=== PATIENT | female | born 1980 | race Caucasian/White ===

== ENCOUNTER 2018-03-19 10:37 | Inpatient (IN) | payer OTHER ==
[2018-03-19 11:19] VITALS: BMI 26.4
--- NOTE | 2018-03-19 12:13 | HP ---
CIWA Score - Admission Criteria OASAS Guidelines: Admission for Medically Managed Detox: Requires at least one of the followin. CIWA greater than 12 2. Seizures within the past 24 hours 3. Delirium tremens within the past 24 hours 4. Hallucinations within the past 24 hours 5. Acute intervention needed for co occurring medical disorder 6. Acute intervention needed for co occurring psychiatric disorder 7. Severe withdrawal that cannot be handled at a lower level of care (continued vomiting, continued diarrhea, abnormal vital signs) requiring intravenous medication and/or fluids 8. Admission ROS S - HPI Chief Complaint: i need help to come in rehab from heroin Allergies/Adverse Reactions: Allergies Allergy/AdvReac Type Severity Reaction Status Date / Time levofloxacin [From Levaquin] Allergy Verified 03/19/18 11:59 haloperidol [From Haldol] AdvReac Verified 03/19/18 12:17 History of Present Illness: This 37 years old female with heroin dependence seeking rehab,last treatment in 2013,history of hepatitis c history of pulmonary embolism right in 01/03 on xeralto congenital club feet,s/p surgery left,old fx of left ankle,wearing brace anxiety,depression,ocd scoliosis nicotine dependence longest period sobriety 3 years - Ebola screening Have you traveled outside of the country in the last 21 days: No Have you had contact with anyone from an Ebola affected area: No Have you been sick,other than usual withdrawal symptoms: No Do you have a fever: No - Review of Systems Constitutional: No Symptoms Reported EENT: reports: No Symptoms Reported Respiratory: reports: No Symptoms reported, Other (history of pulmonary embolism right) Cardiac: reports: No Symptoms Reported (irregularity of heart beat) GI: reports: No Symptoms Reported : reports: No Symptoms Reported Musculoskeletal: reports: No Symptoms Reported, Other (congenital club foot left ,s/p surgery fx left ankle wearing brace left foot) Integumentary: reports: No Symptoms Reported Neuro: reports: No Symptoms reported Endocrine: reports: No Symptoms Reported Hematology: reports: No Symptoms Reported Psychiatric: reports: No Sypmtoms Reported, Judgement Intact, Mood/Affect Appropiate, Orientated x3, Anxious, Depressed (ocd scoliois of back) Patient History - Patient Medical History Hx Asthma: No Hx Chronic Obstructive Pulmonary Disease (COPD): No Hx Cardiac Disorders: No Hx Hypertension: No Hx Seizures: No Hx Diabetes: No Hx Gastrointestinal Disorders: No Hx Genitourinary Disorders: No Hx Sexually Transmitted Disorders: No Hx Renal Disease (ESRD): No Hx Depression: Yes Hx Suicide Attempt: No Hx Schizophrenia: No - Patient Surgical History Past Surgical History: Yes Hx Orthopedic Surgery: Yes (L ankle clubfoot sx at 13 months) Other Surgical History: L foot fx sx in 2014 - PPD History Previous Implant?: Yes Documented Results: Negative w/o proof Implanted On Prior R Admission?: No - Reproductive History Last Menstrual Period: 03/17/18 Patient : No - Smoking Cessation Smoking history: Current every day smoker Have you smoked in the past 12 months: Yes Aproximately how many cigarettes per day: 20 Hx Chewing Tobacco Use: No Initiated information on smoking cessation: Yes 'Breaking Loose' booklet given: 03/19/18 - Substances Abused Heroin Route: Injection Frequency: 1-3 times last 30 days Amount used: 1 bag Age of first use: 19 Date of Last Use: 03/13/17 Family Disease History - Family Disease History Family History: Denies Admission Physical Exam S - Vital Signs Vital Signs: Vital Signs - 24 hr 03/19/18 11:17 Temperature 98.7 F Pulse Rate 64 Respiratory 18 Rate Blood Pressure 108/69 - Physical General Appearance: Yes: Within Normal Limits HEENTM: Yes: Normal ENT Inspection, SHARON, Pharynx Normal Respiratory: Yes: Within Normal Limits, Lungs Clear, Normal Breath Sounds Neck: Yes: Within Normal Limits, Supple, Trachea in good position Breast: Yes: Within Normal Limits Cardiology: Yes: Within Normal Limits, Regular Rhythm, Regular Rate, S1, S2 Abdominal: Yes: Within Normal Limits, Normal Bowel Sounds, Non Tender, Flat, Soft Genitourinary: Yes: Within Normal Limits Back: Yes: Within Normal Limits, Other (scoliosis) Musculoskeletal: Yes: Within Normal Limits Extremities: Yes: Within Normal Limits, Other (scar left) Neurological: Yes: loan operations manager II-XII NML intact, Fully Oriented, Alert, Motor Strength 5/5 Integumentary: Yes: Within Normal Limits, Dry Lymphatic: Yes: Within Normal Limits - Diagnostic (1) Heroin dependence Current Visit: Yes Status: Acute (2) History of pulmonary embolism Current Visit: Yes Status: Acute (3) Hepatitis C Current Visit: Yes Status: Acute (4) Congenital valgus club-foot Current Visit: Yes Status: Acute (5) Fracture of left ankle Current Visit: Yes Status: Acute (6) Scoliosis Current Visit: Yes Status: Acute (7) Anxiety and depression Current Visit: Yes Status: Acute (8) Nicotine dependence Current Visit: Yes Status: Acute Cleared for Admission [facility] - Detox or Rehab Claeared for Rehab Admission: Yes [facility] Breath Alcohol Content Breath Alcohol Content: 0 Urine Pregancy Test - Result Urine Test Results: Negative- NO Line Present Urine Drug Screen - Results Drug Screen Negative: Yes Inpatient Rehab Admission - Initial Determination Are CD services needed?: Yes Free of communicable disease: Yes Not in need of hospitalization: Yes - Rehab Admission Criteria Previous failed treatment: Yes Poor recovery environment: Yes Comorbidities: Yes Lacks judgement: No Patient is meeting Inpatient Rehab admission criteria:: Yes
[2018-03-19] MEDS ORDERED: guaiFENesin/D-METHORPHAN HB 10 ML UNIT-DOSE CUPS PO PRN (12:25)
[2018-03-19] MEDS ORDERED: MENTHOL/PHENOL 1 EACH UD MM PRN (12:25)
[2018-03-19] MEDS ORDERED: MAGNESIUM CITRATE 300 ML BOTTLE PO PRN (12:25)
[2018-03-19] MEDS ORDERED: P-EPHED 60MG/TRIPROLIDI 2.5MG TABLET PO PRN (12:25)
[2018-03-19] MEDS ORDERED: MAG HYDROX/AL HYDROX/SIMETH 30 ML UNIT-DOSE CUP PO PRN (12:25)
[2018-03-19] MEDS ORDERED: MAGNESIUM HYDROX 2400MG/30ML ORAL SUSPENSION 30 ML CUP PO PRN (12:25)
[2018-03-19] MEDS ORDERED: LOPERAMIDE HCL 2 MG CAPSULE PO PRN (12:25)
--- NOTE | 2018-03-19 13:19 | CONSULT ---
[facility] Psychiatric Consult - Data Date of interview: 03/19/18 Admission source: [facility] Identifying data: This is the first admission to [facility] inpatient rehab for this 37 years old female single childless resides with parents, supported by Trellise. Substance Abuse History: Reports using since 19 yo IV ,about 6 bags daily.Longest abstinence about 4 years. Medical History: H/O pulmonary embolism,Hep C, Psychiatric History: Patient reports first contact with psychiatrist since 15 years old.She was dx with Generalized anxiety disorder,OCD(trichotillomania) .Patient was on Luvox,then on Zoloft.She is currently on Wellbutrin since Feb,Seroquel 50 mg po hs prn.She reports one psychiatric hospitalization in Feb 2018 to Rashad Ortiz at [facility] to address depression,anxiety,OCD.She was placed on Wellbutrin 150 mg po daily and Seroquel 100 mg po prn for insomnia ,mood instability. Physical/Sexual Abuse/Trauma History: patient denies Mental Status Exam - Mental Status Exam Alert and Oriented to: Time, Place, Person Cognitive Function: Grossly Intact Patient Appearance: Unkempt Mood: Depressed, Sad, Anxious Affect: Labile Patient Behavior: Cooperative Speech Pattern: Clear Voice Loudness: Normal Thought Process: Goal Oriented Thought Disorder: Not Present Hallucinations: Denies Suicidal Ideation: Denies Homicidal Ideation: Denies Insight/Judgement: Fair Sleep: Fair Appetite: Good Muscle strength/Tone: Normal Gait/Station: Normal Psychiatric Findings - Problem List ([place] 1, 2,3) (1) Congenital valgus club-foot Current Visit: Yes Status: Chronic (2) Fracture of left ankle Current Visit: Yes Status: Chronic (3) Hepatitis C Current Visit: Yes Status: Acute (4) Heroin dependence Current Visit: Yes Status: Acute (5) History of pulmonary embolism Current Visit: Yes Status: Chronic (6) Nicotine dependence Current Visit: Yes Status: Acute (7) Scoliosis Current Visit: Yes Status: Chronic (8) Substance induced mood disorder Current Visit: Yes Status: Chronic (9) OCD (obsessive compulsive disorder) Current Visit: Yes Status: Chronic - Initial Treatment Plan Initial Treatment Plan: Continue Wellbutrin XL 150 mg po daily and Seroquel 100 mg po hs prn for insomnia. Will monitor program.
[2018-03-19 14:18] LABS: HEMOGLOBIN 12.8 GM/dL (10.7-15.3); MCH 33.4 pg (25.7-33.7); MCHC 34.5 g/dl (32.0-36.0); MEAN CELL VOLUME 96.7 fl (80-96); MEAN PLT VOLUME 7.4 fl (7.5-11.1); PLATELET COUNT 241 K/MM3 (134-434); RBC 3.83 M/mm3 (3.60-5.2); RDW 14.4 % (11.6-15.6); WHITE BLOOD COUNT 5.8 K/mm3 (4.0-10.0)
[2018-03-19] MEDS ORDERED: TUBERCULIN PPD 5 TU/0.1ML VIAL ID ONE (14:25)
[2018-03-19 14:29] LABS: ALBUMIN 3.9 g/dl (3.4-5.0); ALK PHOS 65 U/L (45-117); ANION GAP 7 MMOL/L (8-16); BILIRUBIN,TOTAL 0.3 mg/dL (0.2-1); BLOOD UREA NITROGEN 21 mg/dL (7-18); CALCIUM 8.7 mg/dL (8.5-10.1); CHLORIDE 103 mmol/L (98-107); CO2 27 mmol/L (21-32); GLUCOSE,RANDOM 81 mg/dL (74-106); POTASSIUM 4.4 mmol/L (3.5-5.1); SGOT/AST 28 U/L (15-37); SGPT/ALT 42 U/L (13-61); SODIUM 137 mmol/L (136-145); TOT PROT 7.6 g/dl (6.4-8.2)
[2018-03-19] MEDS ORDERED: PT OWN MED DRAWER 7, Y5N ONE (14:56)
[2018-03-19] MEDS: THIAMINE HCL 100 MG TABLET (FP) PO SCH (21:50)
[2018-03-19] MEDS: NICOTINE POLACRILEX 2 MG GUM BUC PRN (21:54)
[2018-03-19] MEDS: hydrOXYzine PAMOATE 50 MG CAPSULE (FP) PO PRN (21:54)
[2018-03-19] MEDS ORDERED: MELATONIN 5 MG TABLETS PO PRN (22:00)
[2018-03-19] MEDS ORDERED: GABAPENTIN 100 MG CAPSULE (FP) PO SCH (23:15)
[2018-03-20] MEDS: GABAPENTIN 100 MG CAPSULE (FP) PO SCH ×3 (06:49→21:40)
[2018-03-20] MEDS: LORATADINE 10 MG TABLET PO PRN (06:49)
[2018-03-20] MEDS: RIVAROXABAN 20 MG TABLET PO SCH (07:41)
[2018-03-20] MEDS: PRENATAL VITAMINS W/ FOLIC ACID TABLET (FP) PO SCH (09:51)
[2018-03-20] MEDS: NICOTINE POLACRILEX 2 MG GUM BUC PRN ×2 (09:52→14:12)
[2018-03-20 13:18] LABS: URINE APPEARANCE CLEAR; URINE BILIRUBIN NEGATIVE (<2.0 mg/dL); URINE COLOR LTYELLOW; URINE GLUCOSE (UA) NEGATIVE (NEGATIVE); URINE KETONE NEGATIVE (NEGATIVE); URINE LEUK ESTERASE NEGATIVE (NEGATIVE); URINE NITRITE NEGATIVE (NEGATIVE); URINE PROTEIN NEGATIVE (NEGATIVE); URINE UROBILINOGEN NEGATIVE mg/dL (0.2-1.0)
[2018-03-20] MEDS: THIAMINE HCL 100 MG TABLET (FP) PO SCH (21:39)
[2018-03-20] MEDS: hydrOXYzine PAMOATE 50 MG CAPSULE (FP) PO PRN (21:40)
[2018-03-20] MEDS: QUEtiapine FUMARATE 100 MG TABLET (FP) PO PRN (21:41)
[2018-03-21] MEDS: LORATADINE 10 MG TABLET PO PRN (06:49)
[2018-03-21] MEDS: RIVAROXABAN 20 MG TABLET PO SCH (06:49)
[2018-03-21] MEDS: GABAPENTIN 100 MG CAPSULE (FP) PO SCH ×3 (06:49→21:18)
[2018-03-21] MEDS: NICOTINE POLACRILEX 2 MG GUM BUC PRN ×2 (09:38→21:20)
[2018-03-21] MEDS: PRENATAL VITAMINS W/ FOLIC ACID TABLET (FP) PO SCH (09:38)
--- NOTE | 2018-03-21 15:46 | EKG ---
Test Reason : Blood Pressure : / mmHG Vent. Rate : 047 BPM Atrial Rate : 047 BPM P-R Int : 146 ms QRS Dur : 086 ms QT Int : 472 ms P-R-T Axes : 023 044 048 degrees QTc Int : 417 ms SINUS BRADYCARDIA WITH SINUS ARRHYTHMIA OTHERWISE NORMAL ECG NO PREVIOUS ECGS AVAILABLE Confirmed by SHIMON MCKENZIE MD ([id number]) on 03/21/2018 3:46:36 PM Referred By: Confirmed By:SHIMON MCKENZIE MD
[2018-03-21] MEDS: THIAMINE HCL 100 MG TABLET (FP) PO SCH (21:17)
[2018-03-21] MEDS: QUEtiapine FUMARATE 100 MG TABLET (FP) PO PRN (21:18)
[2018-03-21] MEDS: hydrOXYzine PAMOATE 50 MG CAPSULE (FP) PO PRN (21:18)
[2018-03-22] MEDS ORDERED: PT OWN MED DRAWER 7, Y5N ONE (05:47)
[2018-03-22] MEDS: GABAPENTIN 100 MG CAPSULE (FP) PO SCH ×3 (06:31→21:23)
[2018-03-22] MEDS: RIVAROXABAN 20 MG TABLET PO SCH (06:31)
[2018-03-22] MEDS: NICOTINE POLACRILEX 2 MG GUM BUC PRN ×4 (06:31→21:24)
[2018-03-22] MEDS: PRENATAL VITAMINS W/ FOLIC ACID TABLET (FP) PO SCH (09:47)
[2018-03-22] MEDS: LORATADINE 10 MG TABLET PO PRN (10:22)
--- NOTE | 2018-03-22 15:52 | PN ---
"[facility] Progress Note Note: PT REQUESTING TO GET BACK ON SUBOXONE. PT REPORTS SHE WAS ON SUBOXONE 8MG/2MG SL TID AND LAST RECEIVED DOSE ON 05/06/[address] CARR IN [place], [place]. PT WAS REFERRED TO HER COUNSELOR TODAY TO ARRANGE FOR AFTERCARE AND CONTINUED SUBOXONE TREATMENT AFTER REHAB TREATMENT. PT WILL BE SEEN TOMORROW FOR ASSESSMENT AND POSSIBLE RESTART ON SUBOXONE. BELOW IS HER HX SEEN ON [facility]. The Drug Utilization Report below displays all of the controlled substance prescriptions, if any, that your patient has filled in the last twelve months. The information displayed on this report is compiled from pharmacy submissions to the Department, and accurately reflects the information as submitted by the pharmacies. This report was requested by: Ariana Booker | Reference #: [id number] You have not added a BRENT number. Keeping your BRENT number(s) up to date on the My BRENT Numbers page will enable the separation of your prescriptions from others ' in the search results. Others' Prescriptions Patient Name: Vanna Clay Date: 1980 Address: [address] [place] [address] Sex: Female Rx Written Rx Dispensed Drug Quantity Days Supply Prescriber Name 05/01/2017 05/01/2017 suboxone 8 mg-2 mg sl film 21 7 Tito Myers MD 04/24/2017 04/24/2017 suboxone 8 mg-2 mg sl film 21 7 Tito Myers MD 04/17/2017 04/17/2017 suboxone 8 mg-2 mg sl film 21 7 Tito Myers MD 04/10/2017 04/10/2017 suboxone 8 mg-2 mg sl film 21 7 Tito Myers MD 04/03/2017 04/03/2017 suboxone 8 mg-2 mg sl film 21 7 Tito Myers MD 03/27/2017 03/27/2017 suboxone 8 mg-2 mg sl film 21 7 Tito Myers MD * - Drugs marked with an asterisk are compound drugs. If the compound drug is made up of more than one controlled substance, then each controlled substance will be a separate row in the table. Vital Signs - 24 hr 03/22/18 03/22/18 03/22/18 00:30 03:30 07:16 Temperature 97.7 F Pulse Rate 81 Respiratory 16 16 18 Rate Blood Pressure 119/76 Laboratory Tests 03/19/18 03/19/18 03/19/18 12:40 12:40 12:40 WBC 5.8 RBC 3.83 Hgb 12.8 Hct 37.0 MCV 96.7 H MCH 33.4 MCHC 34.5 RDW 14.4 Plt Count 241 MPV 7.4 L Sodium 137 Potassium 4.4 Chloride 103 Carbon Dioxide 27 Anion Gap 7 L BUN 21 H Creatinine 1.0 Creat Clearance w eGFR > 60 Random Glucose 81 Calcium 8.7 Total Bilirubin 0.3 AST 28 ALT 42 Alkaline Phosphatase 65 Total Protein 7.6 Albumin 3.9 Urine Color Urine Appearance Urine pH Ur Specific [place] Urine Protein Urine Glucose (UA) Urine Ketones Urine Blood Urine Nitrite Urine Bilirubin Urine Urobilinogen Ur Leukocyte Esterase RPR Titer Nonreactive 03/20/18 09:20 WBC RBC Hgb Hct MCV MCH MCHC RDW Plt Count MPV Sodium Potassium Chloride Carbon Dioxide Anion Gap BUN Creatinine Creat Clearance w eGFR Random Glucose Calcium Total Bilirubin AST ALT Alkaline Phosphatase Total Protein Albumin Urine Color Ltyellow Urine Appearance Clear Urine pH 6.0 Ur Specific Prospect 1.013 Urine Protein Negative Urine Glucose (UA) Negative Urine Ketones Negative Urine Blood Negative Urine Nitrite Negative Urine Bilirubin Negative Urine Urobilinogen Negative Ur Leukocyte Esterase Negative RPR Titer RANJEET=0 ON ADMISSION DRUG SCREEN NEGATIVE ON ADMISSION PLAN:WILL START SUBOXONE 4 MG/0.5 MG SL BID STARTING ON 03/23/18"
[2018-03-22] MEDS: THIAMINE HCL 100 MG TABLET (FP) PO SCH (21:23)
[2018-03-22] MEDS: QUEtiapine FUMARATE 100 MG TABLET (FP) PO PRN (21:23)
[2018-03-22] MEDS: hydrOXYzine PAMOATE 50 MG CAPSULE (FP) PO PRN (21:23)
[2018-03-23] MEDS ORDERED: PT OWN MED DRAWER 7, Y5N ONE (03:14)
[2018-03-23] MEDS: RIVAROXABAN 20 MG TABLET PO SCH (06:27)
[2018-03-23] MEDS: GABAPENTIN 100 MG CAPSULE (FP) PO SCH ×3 (06:27→21:14)
[2018-03-23] MEDS: NICOTINE POLACRILEX 2 MG GUM BUC PRN ×3 (06:28→21:14)
[2018-03-23] MEDS: PRENATAL VITAMINS W/ FOLIC ACID TABLET (FP) PO SCH (09:47)
[2018-03-23] MEDS: LORATADINE 10 MG TABLET PO PRN (09:47)
--- NOTE | 2018-03-23 10:34 | HP ---
CIWA Score - Admission Criteria OASAS Guidelines: Admission for Medically Managed Detox: Requires at least one of the followin. CIWA greater than 12 2. Seizures within the past 24 hours 3. Delirium tremens within the past 24 hours 4. Hallucinations within the past 24 hours 5. Acute intervention needed for co occurring medical disorder 6. Acute intervention needed for co occurring psychiatric disorder 7. Severe withdrawal that cannot be handled at a lower level of care (continued vomiting, continued diarrhea, abnormal vital signs) requiring intravenous medication and/or fluids 8. Admission ROS [facility] Chief Complaint: REQUESTING SUBOXONE TREATMENT AND SX OF DRUG CRAVINGS. Allergies/Adverse Reactions: Allergies Allergy/AdvReac Type Severity Reaction Status Date / Time levofloxacin [From Levaquin] Allergy Verified 03/19/18 11:59 haloperidol [From Haldol] AdvReac Verified 03/19/18 12:17 History of Present Illness: PT IS A 37 Y/O FEMALE WITH A HX OF HEROIN AND COCAINE DEPENDENCE REQUESTING SUBOXONE TREATMENT. PT REPORTS SHE IS ON PAROLE BUT REFERRED TO REHAB RESTORATIVE MANAGEMENT. PT REPORTS SHE WAS IN TREATMENT WITH DR. MYERS FROM FEBRUARY -April, BEFORE INCARCERATED. RELEASED AUGUST 2017 BUT HAS NOT BEEN BACK TO THE DOCTOR. PT REPORTS SHE THEN WAS IN [place] IN A DAY CLINIC WHERE SHE WAS ON SUBUTEX 20 MG DAILY FOR ABOUT 3 MONTHS LATER PART OF 2017. RETURNED TO [place] IN AND HAS NOT RETURNED TO SUBOXONE TREATMENT BECAUSE OF INACTIVE [place] INSURANCE. SHE ALSO STATED SHE HAS BEEN ON/OFF SUBOXONE TREATMENT WITH OTHER PROVIDERS OTHER THAN DR ROX TOMLINSON. PT REPORTS SHE HAS NO JOB BUT TAKES CARE OF HER GRANDMOTHER. REPORTS WHEN SHE WAS ON SUBOXONE THE TREATMENT HELPED HER TO BE SOMEHOW IN [place] OF HER LIFE AND WAS IN AN OUT PATIENT PROGRAM IN [place]. BELOW IS HER EXHIBITS MANAGER SUBOXONE HX. PT REPORTS HX BLOOD CLOTS AND ON XARELTO BUT STATES SHE AMATO BEEN ON IT WELL WHILE ON SUBOXONE TREATMENT. REPORTS HX DEPRESSION/TREATMENT. The Drug Utilization Report below displays all of the controlled substance prescriptions, if any, that your patient has filled in the last twelve months. The information displayed on this report is compiled from pharmacy submissions to the Department, and accurately reflects the information as submitted by the pharmacies. This report was requested by: Ariana Booker | Reference #: [id number] You have not added a BRENT number. Keeping your BRENT number(s) up to date on the My BRENT Numbers page will enable the separation of your prescriptions from others ' in the search results. Others' Prescriptions Patient Name: Vanna Isidro Date: 1980 Address: [address] [place] [address] Sex: Female Rx Written Rx Dispensed Drug Quantity Days Supply Prescriber Name 05/01/2017 05/01/2017 suboxone 8 mg-2 mg sl film 21 7 Tito Myers MD 04/24/2017 04/24/2017 suboxone 8 mg-2 mg sl film 21 7 Tito Myers MD 04/17/2017 04/17/2017 suboxone 8 mg-2 mg sl film 21 7 Tito Myers MD 04/10/2017 04/10/2017 suboxone 8 mg-2 mg sl film 21 7 Tito Myers MD 04/03/2017 04/03/2017 suboxone 8 mg-2 mg sl film 21 7 Tito Myers MD 03/27/2017 03/27/2017 suboxone 8 mg-2 mg sl film 21 7 Tito Myers MD * - Drugs marked with an asterisk are compound drugs. If the compound drug is made up of more than one controlled substance, then each controlled substance will be a separate row in the table.The Drug Utilization Report below displays the controlled substance prescriptions, if any, that were dispensed in the indicated state(s). The information displayed on this report is compiled from requests submitted to other states' PMPs, and accurately reflects the information as returned by them. Blank galvan indicate data not provided by other state. This report was requested by: Ariana Bookre | Reference #: [id number] Prescriptions Dispensed in [place] Others' Prescriptions Patient Name: VANNA ISIDRO Date: 1980 Address: [address] [place] [address] Sex: Female Rx Written Rx Dispensed Drug Strength Quantity Days Supply Prescriber Name 01/10/2014 01/10/2014 DEXTROAMP-AMPHET ER 20 MG CAP 15.0000 15 Blu Mejia 01/04/2014 01/04/2014 VYVANSE 30 MG CAPSULE 7.0000 7 Blu Mejia 05/18/2014 05/20/2014 OXYCODONE-ACETAMINOPHEN 5-325 15.0000 4 Cece Aden * - Drugs marked with an asterisk are compound drugs. If the compound drug is made up of more than one controlled substance, then each controlled substance will be a separate row in the table. Exam Limitations: No Limitations - Ebola screening Have you traveled outside of the country in the last 21 days: No Have you had contact with anyone from an Ebola affected area: No Have you been sick,other than usual withdrawal symptoms: No Do you have a fever: No - Review of Systems Constitutional: No Symptoms Reported Respiratory: reports: No Symptoms reported Cardiac: reports: No Symptoms Reported GI: reports: No Symptoms Reported Musculoskeletal: reports: Back Pain (HX SCOLIOSIS), Joint Pain, Muscle Pain, Neck Pain ("NEUROPATHY ON MY NECK"), Other (HX CLUB FOOT--BRACE ON LEFT FOOT. SURGERY AT 13 MONTHS AND ALSO PINS/PLATES IN MAY 2014.) Neuro: reports: Headache (MENSTRUAL HEADACHES) Hematology: reports: Blood Clots (HX-OX XARELTO) Psychiatric: reports: Orientated x3 Other Systems: Reviewed and Negative Patient History - Patient Medical History Hx Anemia: No Hx Asthma: No Hx Chronic Obstructive Pulmonary Disease (COPD): No Hx Cardiac Disorders: No Hx Hypertension: No Hx Hypercholesterolemia: No HX Cerebrovascular Accident: No Hx Seizures: No Hx Diabetes: No Hx Gastrointestinal Disorders: No Hx Genitourinary Disorders: No Hx Sexually Transmitted Disorders: No Hx Renal Disease (ESRD): No Hx Hepatitis C: Yes (NO TREATMENT YET) Hx Depression: Yes Hx Suicide Attempt: No (DENIES S/I) Hx Schizophrenia: No - Patient Surgical History Past Surgical History: Yes Hx Orthopedic Surgery: Yes (L ankle clubfoot sx at 13 months) Other Surgical History: L foot fx sx in 2014 - PPD History Previous Implant?: Yes Documented Results: Negative w/o proof Implanted On Prior R Admission?: No Date: 03/21/18 PPD to be Administered?: No - Reproductive History Patient is a Female of Child Bearing Age (11 -55 yrs old): Yes Last Menstrual Period: 03/17/18 Patient : No - Smoking Cessation Smoking history: Current every day smoker Have you smoked in the past 12 months: Yes Aproximately how many cigarettes per day: 20 Hx Chewing Tobacco Use: No Initiated information on smoking cessation: Yes 'Breaking Loose' booklet given: 03/23/18 - Substance & Tx. History Hx Alcohol Use: No Hx Substance Use: Yes Substance Use Type: Cocaine, Heroin Hx Substance Use Treatment: Yes - Substances Abused Heroin Route: Injection Frequency: 1-3 times last 30 days Amount used: 1 bag Age of first use: 19 Date of Last Use: 03/13/17 Family Disease History - Family Disease History Family Disease History: Other: Mother (HTN) Admission Physical Exam [facility] - Vital Signs Vital Signs: Vital Signs - 24 hr 03/23/18 03/23/18 03:30 07:13 Temperature 97.7 F Pulse Rate 75 Respiratory 16 16 Rate Blood Pressure 112/71 - Physical General Appearance: Yes: No Apparent Distress HEENTM: Yes: EOMI, SHARON, Pharynx Normal Respiratory: Yes: Chest Non-Tender, Lungs Clear, Normal Breath Sounds, No Respiratory Distress Neck: Yes: Supple, Trachea in good position Cardiology: Yes: Regular Rate, S1, S2 Abdominal: Yes: Non Tender, Soft Extremities: Yes: Other (PT HAS LEFT ANKLE BRACE DUE TO CONGENITAL CLUB FOOT SX. ) Neurological: Yes: sales contract administrator II-XII NML intact, Fully Oriented, Alert Integumentary: Yes: Dry, Warm Lymphatic: Yes: Within Normal Limits - Addiitonal Findings: PT WILL START SUBOXONE 4MG/ 1MG SL BID - Diagnostic (1) Encounter for monitoring Suboxone maintenance therapy Current Visit: Yes Status: Acute [facility] Breath Alcohol Content Breath Alcohol Content: 0 Urine Pregancy Test - Result Urine Test Results: Negative- NO Line Present Urine Drug Screen - Results Drug Screen Negative: Yes
[2018-03-23] MEDS ORDERED: BUPRENORPHINE/NALOXONE 2 MG/0.5 MG FILM PACKET SL ONE (11:25)
[2018-03-23] MEDS: BUPRENORPHINE/NALOXONE 2 MG/0.5 MG FILM PACKET SL SCH (17:47)
[2018-03-23] MEDS: THIAMINE HCL 100 MG TABLET (FP) PO SCH (21:14)
[2018-03-23] MEDS: QUEtiapine FUMARATE 100 MG TABLET (FP) PO PRN (21:14)
[2018-03-23] MEDS: hydrOXYzine PAMOATE 50 MG CAPSULE (FP) PO PRN (21:15)
[2018-03-24] MEDS: RIVAROXABAN 20 MG TABLET PO SCH (06:02)
[2018-03-24] MEDS: GABAPENTIN 100 MG CAPSULE (FP) PO SCH ×3 (06:02→21:29)
[2018-03-24] MEDS: BUPRENORPHINE/NALOXONE 2 MG/0.5 MG FILM PACKET SL SCH ×2 (06:02→17:46)
[2018-03-24] MEDS: PRENATAL VITAMINS W/ FOLIC ACID TABLET (FP) PO SCH (09:50)
[2018-03-24] MEDS: LORATADINE 10 MG TABLET PO PRN (09:51)
[2018-03-24] MEDS: NICOTINE POLACRILEX 2 MG GUM BUC PRN ×2 (09:51→13:40)
[2018-03-24] MEDS ORDERED: COLLOIDAL OATMEAL 1 BAR EACH TP PRN (10:33)
--- NOTE | 2018-03-24 10:38 | PN ---
[facility] Progress Note Note: PT C/O ITCHY SKIN AND WANTS SOAP CHANGED SINCE FEW DAYS AGO. REPORTS DRY ITCHY ANKLES. Vital Signs - 24 hr 03/24/18 03/24/18 03/24/18 00:30 03:30 08:31 Temperature 98.2 F Pulse Rate 76 Respiratory 16 16 16 Rate Blood Pressure 115/72 PLAN:AVEENO SOAP FOR DAILY HYGIENE HYDROCORTISONE CREAM 1/% BID APPLY TO AFFECTED ANKLE AREAS X 5 DAYS
[2018-03-24] MEDS: HYDROCORTISONE 1% TOPICAL CREAM 30 GM TUBE TP SCH ×2 (13:40→21:32)
[2018-03-24] MEDS: hydrOXYzine PAMOATE 50 MG CAPSULE (FP) PO PRN (21:29)
[2018-03-24] MEDS: QUEtiapine FUMARATE 100 MG TABLET (FP) PO PRN (21:29)
[2018-03-24] MEDS: THIAMINE HCL 100 MG TABLET (FP) PO SCH (21:29)
[2018-03-24] MEDS: NICOTINE POLACRILEX 4 MG GUM BUC PRN (21:30)
[2018-03-24] MEDS ORDERED: PT OWN MED DRAWER 7, Y5N ONE (21:32)
[2018-03-25] MEDS ORDERED: PT OWN MED DRAWER 7, Y5N ONE ×2 (02:59→21:47)
[2018-03-25] MEDS: RIVAROXABAN 20 MG TABLET PO SCH (06:12)
[2018-03-25] MEDS: GABAPENTIN 100 MG CAPSULE (FP) PO SCH (06:12)
[2018-03-25] MEDS: BUPRENORPHINE/NALOXONE 2 MG/0.5 MG FILM PACKET SL SCH ×2 (06:12→17:49)
[2018-03-25] MEDS: NICOTINE POLACRILEX 4 MG GUM BUC PRN ×3 (09:55→21:12)
[2018-03-25] MEDS: PRENATAL VITAMINS W/ FOLIC ACID TABLET (FP) PO SCH (09:55)
[2018-03-25] MEDS: LORATADINE 10 MG TABLET PO PRN (09:55)
[2018-03-25] MEDS: HYDROCORTISONE 1% TOPICAL CREAM 30 GM TUBE TP SCH ×2 (09:56→21:12)
--- NOTE | 2018-03-25 13:42 | PN ---
Psychiatric Progress Note Vital Signs: Vital Signs Period Temp Pulse Resp BP Sys/Pickard Pulse Ox Last 24 Hr 97.9 F 77 16-18 96/60 Date of Session: 03/25/18 Chief Complaint:: "I want my medication increased" HPI: Patient addressing Opioid dependence comorborbid with Nicotine Dependence, OCD and Substance-Induced Mood Disorder ROS: Hep C, PE, Scoliosis, Congenital Valgus club-foot Current Medications: Active Medications Generic Name Dose Route Start Last Admin Trade Name Freq PRN Reason Stop Dose Admin Acetaminophen 650 mg 03/19/18 12:25 Tylenol - PO Q4H PRN FEVER Al Hydroxide/Mg Hydroxide 30 ml 03/19/18 12:25 Mylanta Oral Suspension - PO Q6H PRN DYSPEPSIA Buprenorphine/Naloxone 2 each 03/23/18 18:00 03/25/18 06:12 Suboxone 2mg/0.5mg Sl Film - SL 03/30/18 17:59 2 each BID@0600,1800 BRYNN Administration Bupropion HCl 150 mg 03/19/18 14:00 03/25/18 09:55 Wellbutrin Xl - PO 150 mg DAILY BRYNN Administration Eucalyptus/Menthol/Phenol/Sorbitol 1 each 03/19/18 12:25 Cepastat Lozenge - MM Q4H PRN SORE THROAT Gabapentin 100 mg 03/20/18 06:00 03/25/18 06:12 Neurontin - PO 100 mg TID BRYNN Administration Guaifenesin 10 ml 03/19/18 12:25 Robitussin Dm - PO Q6H PRN COUGH Hydrocortisone 1 applic 03/24/18 10:45 03/25/18 09:56 Hytone 1% Cream - TP 03/29/18 10:44 1 applic BID BRYNN Administration Hydroxyzine Pamoate 50 mg 03/19/18 12:25 03/24/18 21:29 Vistaril - PO 50 mg Q4H PRN Administration AGITATION Loperamide HCl 4 mg 03/19/18 12:25 Imodium - PO Q6H PRN DIARRHEA Loratadine 10 mg 03/19/18 23:50 03/25/18 09:55 Claritin - PO 10 mg DAILY PRN Administration Nasal Allergies Magnesium Citrate 300 ml 03/19/18 12:25 Citroma - PO Q48H PRN CONSTIPATION Magnesium Hydroxide 30 ml 03/19/18 12:25 Milk Of Magnesia - PO DAILY PRN CONSTIPATION Melatonin 5 mg 03/19/18 22:00 Melatonin PO HS PRN INSOMNIA Nicotine Polacrilex 4 mg 03/24/18 14:14 03/25/18 09:55 Nicorette Gum - BUC 4 mg Q2H PRN Administration NICOTINE REPLACEMENT RX Multivit/Folic Acid/Iron 1 tab 03/20/18 10:00 03/25/18 09:55 Vitamins (Sjr) - PO 1 tab DAILY BRYNN Administration Pseudoephedrine/Triprolidine 1 combo 03/19/18 12:25 Actifed - PO TID PRN NASAL CONGESTION Quetiapine Fumarate 100 mg 03/19/18 13:52 03/24/18 21:29 Seroquel - PO 100 mg HS PRN Administration INSOMNIA Rivaroxaban 20 mg 03/20/18 07:00 03/25/18 06:12 Xarelto - PO 20 mg ACBK BRYNN Administration Thiamine HCl 100 mg 03/19/18 22:00 03/24/18 21:29 Vitamin B1 - PO 100 mg HS BRYNN Administration Current Side Effect: No Lab tests ordered: Yes Lab tests reviewed: Yes Provider note:: Patient reports that she has been feeling irritable and and has experiencing racing thoughts. Told underwriter that besides OCD, she was recently discharged from [facility] with the diagnosis of Bipolar Disorder on Wellbutrin Xl 150 mg po daily, Seroquel 100 mg po HS and Gabapentin 100 mg po TID. She is currently on these medicatons. Discussed with patient about increasing Gabapentin dose to 300 mg po TID and she agreed with that plan. Total face to face time:: 25 Mental Status Exam - Mental Status Exam Alert and Oriented to: Time, Place, Person Cognitive Function: Fair Patient Appearance: Well Groomed Mood: Anxious Affect: Appropriate Patient Behavior: Cooperative Speech Pattern: Clear Voice Loudness: Normal Thought Process: Intact Thought Disorder: Not Present Hallucinations: Denies Suicidal Ideation: Denies Homicidal Ideation: Denies Insight/Judgement: Fair Sleep: Poorly Appetite: Good Muscle strength/Tone: Normal Gait/Station: Normal Psychiatric Treatment Plan - Problem List (1) Bipolar II disorder Current Visit: Yes (2) OCD (obsessive compulsive disorder) Current Visit: Yes (3) Substance induced mood disorder Current Visit: Yes (4) Opioid dependence Current Visit: Yes (5) Nicotine dependence Current Visit: Yes (6) Hepatitis C Current Visit: Yes (7) History of pulmonary embolism Current Visit: Yes (8) Scoliosis Current Visit: Yes Initial treatment plan: 1) Continue Welbutrin XL and Seroquel as currently ordered. 2) Discontinue Gabapentin as currently ordered. 3) Start Gabapentin 300 mg po TID. 4) Continue inpatient rehabilitation
[2018-03-25] MEDS: GABAPENTIN 300 MG CAPSULE (FP) PO SCH ×2 (15:19→21:10)
[2018-03-25] MEDS: ACETAMINOPHEN 325 MG TABLET (FP) PO PRN (15:21)
[2018-03-25] MEDS: hydrOXYzine PAMOATE 50 MG CAPSULE (FP) PO PRN (21:10)
[2018-03-25] MEDS: THIAMINE HCL 100 MG TABLET (FP) PO SCH (21:10)
[2018-03-25] MEDS: QUEtiapine FUMARATE 100 MG TABLET (FP) PO PRN (21:11)
[2018-03-26] MEDS: GABAPENTIN 300 MG CAPSULE (FP) PO SCH ×3 (06:10→21:17)
[2018-03-26] MEDS: RIVAROXABAN 20 MG TABLET PO SCH (06:10)
[2018-03-26] MEDS: BUPRENORPHINE/NALOXONE 2 MG/0.5 MG FILM PACKET SL SCH ×2 (06:11→17:34)
[2018-03-26] MEDS: NICOTINE POLACRILEX 4 MG GUM BUC PRN ×3 (07:35→17:36)
[2018-03-26] MEDS: ACETAMINOPHEN 325 MG TABLET (FP) PO PRN (09:36)
[2018-03-26] MEDS: LORATADINE 10 MG TABLET PO PRN (09:36)
[2018-03-26] MEDS: PRENATAL VITAMINS W/ FOLIC ACID TABLET (FP) PO SCH (09:36)
[2018-03-26] MEDS: HYDROCORTISONE 1% TOPICAL CREAM 30 GM TUBE TP SCH ×2 (09:38→21:18)
[2018-03-26 10:48] LABS: URINE APPEARANCE CLEAR; URINE BILIRUBIN NEGATIVE (<2.0 mg/dL); URINE COLOR STRAW; URINE GLUCOSE (UA) NEGATIVE (NEGATIVE); URINE KETONE NEGATIVE (NEGATIVE); URINE LEUK ESTERASE NEGATIVE (NEGATIVE); URINE NITRITE NEGATIVE (NEGATIVE); URINE PROTEIN NEGATIVE (NEGATIVE); URINE UROBILINOGEN NEGATIVE mg/dL (0.2-1.0)
--- NOTE | 2018-03-26 12:11 | PN ---
S Progress Note Note: PATIENT SEEN FOR C/O CONSTIPATION. PATIENT STATES SHE HAD BM AFTER TAKING MOM BUT WOULD LIKE STOOL SOFTENER. PATIENT DENIES ABD PAIN, N/V/D AND FEVER. Vital Signs Temperature 98.2 F 03/26/18 06:50 Pulse Rate 74 03/26/18 06:50 Respiratory Rate 18 03/26/18 06:50 Blood Pressure 97/62 03/26/18 06:50 O2 Sat by Pulse Oximetry (%) PE: ALERT AND ORIENTED X 3 SKIN WARM AND DRY GI SOFT, ND, NT EXT FULL ROM,AMB AD FELICIANO A/P: CONSTIPATION WILL ADD COLACE 100MG BID ENCOURAGE ORAL FLUIDS CONTINUE TO MONITOR
[2018-03-26] MEDS: hydrOXYzine PAMOATE 50 MG CAPSULE (FP) PO PRN (21:17)
[2018-03-26] MEDS: QUEtiapine FUMARATE 100 MG TABLET (FP) PO PRN (21:17)
[2018-03-26] MEDS: THIAMINE HCL 100 MG TABLET (FP) PO SCH (21:17)
[2018-03-26] MEDS: DOCUSATE SODIUM 100 MG CAPSULE (FP) PO SCH (21:20)
[2018-03-27] MEDS: GABAPENTIN 300 MG CAPSULE (FP) PO SCH ×3 (06:16→21:33)
[2018-03-27] MEDS: RIVAROXABAN 20 MG TABLET PO SCH (06:16)
[2018-03-27] MEDS: BUPRENORPHINE/NALOXONE 2 MG/0.5 MG FILM PACKET SL SCH ×2 (06:16→17:07)
[2018-03-27] MEDS: DOCUSATE SODIUM 100 MG CAPSULE (FP) PO SCH ×2 (09:44→21:33)
[2018-03-27] MEDS: PRENATAL VITAMINS W/ FOLIC ACID TABLET (FP) PO SCH (09:45)
[2018-03-27] MEDS: HYDROCORTISONE 1% TOPICAL CREAM 30 GM TUBE TP SCH ×2 (09:45→21:34)
[2018-03-27] MEDS: LORATADINE 10 MG TABLET PO PRN (09:46)
[2018-03-27] MEDS: ACETAMINOPHEN 325 MG TABLET (FP) PO PRN (09:47)
[2018-03-27] MEDS: NICOTINE POLACRILEX 4 MG GUM BUC PRN ×4 (09:47→21:36)
[2018-03-27] MEDS: QUEtiapine FUMARATE 100 MG TABLET (FP) PO PRN (21:33)
[2018-03-27] MEDS: THIAMINE HCL 100 MG TABLET (FP) PO SCH (21:33)
[2018-03-27] MEDS: hydrOXYzine PAMOATE 50 MG CAPSULE (FP) PO PRN (21:46)
[2018-03-28] MEDS: BUPRENORPHINE/NALOXONE 2 MG/0.5 MG FILM PACKET SL SCH ×2 (06:17→18:46)
[2018-03-28] MEDS: GABAPENTIN 300 MG CAPSULE (FP) PO SCH ×3 (06:17→21:17)
[2018-03-28] MEDS: RIVAROXABAN 20 MG TABLET PO SCH (06:17)
[2018-03-28] MEDS: HYDROCORTISONE 1% TOPICAL CREAM 30 GM TUBE TP SCH ×2 (09:33→21:17)
[2018-03-28] MEDS: DOCUSATE SODIUM 100 MG CAPSULE (FP) PO SCH ×2 (09:33→21:17)
[2018-03-28] MEDS: LORATADINE 10 MG TABLET PO PRN (09:34)
[2018-03-28] MEDS: NICOTINE POLACRILEX 4 MG GUM BUC PRN ×3 (09:34→18:47)
[2018-03-28] MEDS: PRENATAL VITAMINS W/ FOLIC ACID TABLET (FP) PO SCH (09:35)
[2018-03-28] MEDS ORDERED: PT OWN MED DRAWER 7, Y5N ONE (19:07)
[2018-03-28] MEDS: QUEtiapine FUMARATE 100 MG TABLET (FP) PO PRN (21:17)
[2018-03-28] MEDS: THIAMINE HCL 100 MG TABLET (FP) PO SCH (21:17)
[2018-03-28] MEDS: hydrOXYzine PAMOATE 50 MG CAPSULE (FP) PO PRN (21:17)
[2018-03-29] MEDS: GABAPENTIN 300 MG CAPSULE (FP) PO SCH ×3 (06:22→21:20)
[2018-03-29] MEDS: RIVAROXABAN 20 MG TABLET PO SCH (06:22)
[2018-03-29] MEDS: BUPRENORPHINE/NALOXONE 2 MG/0.5 MG FILM PACKET SL SCH ×2 (06:23→17:02)
[2018-03-29] MEDS: ACETAMINOPHEN 325 MG TABLET (FP) PO PRN (09:07)
[2018-03-29] MEDS: HYDROCORTISONE 1% TOPICAL CREAM 30 GM TUBE TP SCH (09:35)
[2018-03-29] MEDS: DOCUSATE SODIUM 100 MG CAPSULE (FP) PO SCH ×2 (10:03→21:20)
[2018-03-29] MEDS: PRENATAL VITAMINS W/ FOLIC ACID TABLET (FP) PO SCH (10:03)
[2018-03-29] MEDS: LORATADINE 10 MG TABLET PO PRN (10:04)
[2018-03-29] MEDS: NICOTINE POLACRILEX 4 MG GUM BUC PRN ×3 (10:05→21:21)
--- NOTE | 2018-03-29 10:33 | PN ---
[facility] Progress Note Note: PATIENT PRESENTS WITH C/O LBP AND MUSCLE ACHES. PATIENTS STATES SHE HAS CHRONIC SCIATICA AND HERNIATED DISCS. Vital Signs Temperature 98.1 F 03/29/18 06:54 Pulse Rate 73 03/29/18 06:54 Respiratory Rate 18 03/29/18 06:54 Blood Pressure 100/66 03/29/18 06:54 O2 Sat by Pulse Oximetry (%) Laboratory Tests 03/19/18 03/19/18 03/19/18 12:40 12:40 12:40 WBC 5.8 RBC 3.83 Hgb 12.8 Hct 37.0 MCV 96.7 H MCH 33.4 MCHC 34.5 RDW 14.4 Plt Count 241 MPV 7.4 L Sodium 137 Potassium 4.4 Chloride 103 Carbon Dioxide 27 Anion Gap 7 L BUN 21 H Creatinine 1.0 Creat Clearance w eGFR > 60 Random Glucose 81 Calcium 8.7 Total Bilirubin 0.3 AST 28 ALT 42 Alkaline Phosphatase 65 Total Protein 7.6 Albumin 3.9 Urine Color Urine Appearance Urine pH Ur Specific [place] Urine Protein Urine Glucose (UA) Urine Ketones Urine Blood Urine Nitrite Urine Bilirubin Urine Urobilinogen Ur Leukocyte Esterase RPR Titer Nonreactive 03/20/18 03/26/18 09:20 07:00 WBC RBC Hgb Hct MCV MCH MCHC RDW Plt Count MPV Sodium Potassium Chloride Carbon Dioxide Anion Gap BUN Creatinine Creat Clearance w eGFR Random Glucose Calcium Total Bilirubin AST ALT Alkaline Phosphatase Total Protein Albumin Urine Color Ltyellow Straw Urine Appearance Clear Clear Urine pH 6.0 6.0 Ur Specific [place] 1.013 1.004 L Urine Protein Negative Negative Urine Glucose (UA) Negative Negative Urine Ketones Negative Negative Urine Blood Negative Negative Urine Nitrite Negative Negative Urine Bilirubin Negative Negative Urine Urobilinogen Negative Negative Ur Leukocyte Esterase Negative Negative RPR Titer PE: ALERT AND ORIENTED X 3 SKIN WARM AND DRY EXT FULL ROM, AMB AD FELICIANO A/P: CHRONIC LBP ADD FLEXERIL 10MG TID CONTINUE TO MONITOR CLINICALLY
[2018-03-29] MEDS: CYCLOBENZAPRINE HCL 10 MG TABLET (FP) PO SCH ×2 (13:42→21:20)
[2018-03-29] MEDS: THIAMINE HCL 100 MG TABLET (FP) PO SCH (21:20)
[2018-03-29] MEDS: hydrOXYzine PAMOATE 50 MG CAPSULE (FP) PO PRN (21:20)
[2018-03-29] MEDS: QUEtiapine FUMARATE 100 MG TABLET (FP) PO PRN (21:20)
[2018-03-30] MEDS: GABAPENTIN 300 MG CAPSULE (FP) PO SCH ×3 (06:27→21:41)
[2018-03-30] MEDS: BUPRENORPHINE/NALOXONE 2 MG/0.5 MG FILM PACKET SL SCH (06:27)
[2018-03-30] MEDS: RIVAROXABAN 20 MG TABLET PO SCH (06:27)
[2018-03-30] MEDS: CYCLOBENZAPRINE HCL 10 MG TABLET (FP) PO SCH ×3 (06:27→21:41)
[2018-03-30] MEDS: DOCUSATE SODIUM 100 MG CAPSULE (FP) PO SCH ×2 (09:50→21:41)
[2018-03-30] MEDS: PRENATAL VITAMINS W/ FOLIC ACID TABLET (FP) PO SCH (09:51)
[2018-03-30] MEDS: LORATADINE 10 MG TABLET PO PRN (09:52)
[2018-03-30] MEDS: NICOTINE POLACRILEX 4 MG GUM BUC PRN ×4 (09:53→21:42)
--- NOTE | 2018-03-30 13:22 | PN ---
[facility] Progress Note Note: pt requesting increase of suboxone stating still craving for drugs. Vital Signs 03/30/18 07:11 Temperature 97.8 F Pulse Rate 76 Respiratory 18 Rate Blood Pressure 100/65 Laboratory Tests 03/19/18 03/19/18 03/19/18 12:40 12:40 12:40 WBC 5.8 RBC 3.83 Hgb 12.8 Hct 37.0 MCV 96.7 H MCH 33.4 MCHC 34.5 RDW 14.4 Plt Count 241 MPV 7.4 L Sodium 137 Potassium 4.4 Chloride 103 Carbon Dioxide 27 Anion Gap 7 L BUN 21 H Creatinine 1.0 Creat Clearance w eGFR > 60 Random Glucose 81 Calcium 8.7 Total Bilirubin 0.3 AST 28 ALT 42 Alkaline Phosphatase 65 Total Protein 7.6 Albumin 3.9 Urine Color Urine Appearance Urine pH Ur Specific [place] Urine Protein Urine Glucose (UA) Urine Ketones Urine Blood Urine Nitrite Urine Bilirubin Urine Urobilinogen Ur Leukocyte Esterase RPR Titer Nonreactive 03/20/18 03/26/18 09:20 07:00 WBC RBC Hgb Hct MCV MCH MCHC RDW Plt Count MPV Sodium Potassium Chloride Carbon Dioxide Anion Gap BUN Creatinine Creat Clearance w eGFR Random Glucose Calcium Total Bilirubin AST ALT Alkaline Phosphatase Total Protein Albumin Urine Color Ltyellow Straw Urine Appearance Clear Clear Urine pH 6.0 6.0 Ur Specific [place] 1.013 1.004 L Urine Protein Negative Negative Urine Glucose (UA) Negative Negative Urine Ketones Negative Negative Urine Blood Negative Negative Urine Nitrite Negative Negative Urine Bilirubin Negative Negative Urine Urobilinogen Negative Negative Ur Leukocyte Esterase Negative Negative RPR Titer nad plan:increase suboxone 8 mg/2mg sl bid as directed
[2018-03-30] MEDS: BUPRENORPHINE/NALOXONE 8 MG/2 MG FILM PACKET SL SCH (17:37)
[2018-03-30] MEDS: THIAMINE HCL 100 MG TABLET (FP) PO SCH (21:41)
[2018-03-30] MEDS: hydrOXYzine PAMOATE 50 MG CAPSULE (FP) PO PRN (21:41)
[2018-03-30] MEDS: QUEtiapine FUMARATE 100 MG TABLET (FP) PO PRN (21:41)
[2018-03-31] MEDS: BUPRENORPHINE/NALOXONE 8 MG/2 MG FILM PACKET SL SCH ×2 (06:20→17:53)
[2018-03-31] MEDS: GABAPENTIN 300 MG CAPSULE (FP) PO SCH (06:21)
[2018-03-31] MEDS: CYCLOBENZAPRINE HCL 10 MG TABLET (FP) PO SCH ×3 (06:21→21:52)
[2018-03-31] MEDS: RIVAROXABAN 20 MG TABLET PO SCH (06:21)
[2018-03-31] MEDS: NICOTINE POLACRILEX 4 MG GUM BUC PRN ×3 (06:23→14:06)
[2018-03-31] MEDS: PRENATAL VITAMINS W/ FOLIC ACID TABLET (FP) PO SCH (10:11)
[2018-03-31] MEDS: DOCUSATE SODIUM 100 MG CAPSULE (FP) PO SCH ×2 (10:11→21:52)
[2018-03-31] MEDS: LORATADINE 10 MG TABLET PO PRN (10:12)
--- NOTE | 2018-03-31 13:11 | PN ---
Psychiatric Progress Note Vital Signs: Vital Signs Period Temp Pulse Resp BP Sys/Pickard Pulse Ox Last 24 Hr 98.0 F 74 18-18 102/64 Date of Session: 03/31/18 Chief Complaint:: Saravanan still anxious,mood is unstable also,depressed. HPI: Patient addressed Opioid dependence comorbid with OCD, Bipolar disorder. ROS: Significant for Scoliosis,Neuropathy. Current Medications: Active Medications Generic Name Dose Route Start Last Admin Trade Name Freq PRN Reason Stop Dose Admin Acetaminophen 650 mg 03/19/18 12:25 03/29/18 09:07 Tylenol - PO 650 mg Q4H PRN Administration FEVER Al Hydroxide/Mg Hydroxide 30 ml 03/19/18 12:25 Mylanta Oral Suspension - PO Q6H PRN DYSPEPSIA Buprenorphine/Naloxone 1 each 03/30/18 18:00 03/31/18 06:20 Suboxone 8mg/2mg Sl Film - SL 04/06/18 17:59 1 each BID@0600,1800 BRYNN Administration Bupropion HCl 150 mg 03/19/18 14:00 03/31/18 10:11 Wellbutrin Xl - PO 150 mg DAILY BRYNN Administration Cyclobenzaprine HCl 10 mg 03/29/18 14:00 03/31/18 06:21 Flexeril - PO 10 mg TID BRYNN Administration Docusate Sodium 100 mg 03/26/18 22:00 03/31/18 10:11 Colace - PO 100 mg BID BRYNN Administration Eucalyptus/Menthol/Phenol/Sorbitol 1 each 03/19/18 12:25 03/27/18 02:10 Cepastat Lozenge - MM 1 each Q4H PRN Administration SORE THROAT Gabapentin 300 mg 03/25/18 14:00 03/31/18 06:21 Neurontin - PO 300 mg TID BRYNN Administration Guaifenesin 10 ml 03/19/18 12:25 Robitussin Dm - PO Q6H PRN COUGH Hydroxyzine Pamoate 50 mg 03/19/18 12:25 03/30/18 21:41 Vistaril - PO 50 mg Q4H PRN Administration AGITATION Loperamide HCl 4 mg 03/19/18 12:25 Imodium - PO Q6H PRN DIARRHEA Loratadine 10 mg 03/19/18 23:50 03/31/18 10:12 Claritin - PO 10 mg DAILY PRN Administration Nasal Allergies Magnesium Citrate 300 ml 03/19/18 12:25 03/27/18 09:48 Citroma - PO 300 ml Q48H PRN Administration CONSTIPATION Magnesium Hydroxide 30 ml 03/19/18 12:25 03/26/18 09:49 Milk Of Magnesia - PO 30 ml DAILY PRN Administration CONSTIPATION Melatonin 5 mg 03/19/18 22:00 Melatonin PO HS PRN INSOMNIA Nicotine Polacrilex 4 mg 03/24/18 14:14 03/31/18 10:13 Nicorette Gum - BUC 4 mg Q2H PRN Administration NICOTINE REPLACEMENT RX Multivit/Folic Acid/Iron 1 tab 03/20/18 10:00 03/31/18 10:11 Vitamins (Sjr) - PO 1 tab DAILY BRYNN Administration Pseudoephedrine/Triprolidine 1 combo 03/19/18 12:25 Actifed - PO TID PRN NASAL CONGESTION Quetiapine Fumarate 100 mg 03/19/18 13:52 03/30/18 21:41 Seroquel - PO 100 mg HS PRN Administration INSOMNIA Rivaroxaban 20 mg 03/20/18 07:00 03/31/18 06:21 Xarelto - PO 20 mg ACBK BRYNN Administration Thiamine HCl 100 mg 03/19/18 22:00 03/30/18 21:41 Vitamin B1 - PO 100 mg HS BRYNN Administration Current Side Effect: No Lab tests ordered: No Lab tests reviewed: Yes Provider note:: Chart was revuewed,patient was seen to address ongoing anxiety, mood instability,sleeping difficulties.Properties of Neurontin and Wellbutrin has been discussed including side effects,benefits and dose adjustment.Neurontin 300 mg po tid will be adjust to 400 mg po tid and Wellbutrin Xl 150 mg po daily will be adjusted to 300 mg po daily. Supportive therapy provided focusing on relapse prevention.Coping skills,support system has been discussed with the patient as well as other resourses to maintain recovery. Supportive therapy provided. Mental Status Exam - Mental Status Exam Alert and Oriented to: Time, Place, Person Cognitive Function: Grossly Intact Patient Appearance: Unkempt Mood: Nervous, Anxious Affect: Mood Congruent, Labile Patient Behavior: Restless, Cooperative Speech Pattern: Clear, Excessive Voice Loudness: Normal Thought Process: Goal Oriented Thought Disorder: Not Present Hallucinations: Denies Suicidal Ideation: Denies Homicidal Ideation: Denies Insight/Judgement: Fair Sleep: Fair Appetite: Good Muscle strength/Tone: Normal Gait/Station: Normal Psychiatric Treatment Plan - Problem List (1) Congenital valgus club-foot Current Visit: Yes (2) Fracture of left ankle Current Visit: Yes (3) Hepatitis C Current Visit: Yes (4) Heroin dependence Current Visit: Yes (5) History of pulmonary embolism Current Visit: Yes (6) Nicotine dependence Current Visit: Yes (7) Scoliosis Current Visit: Yes (8) Substance induced mood disorder Current Visit: Yes (9) OCD (obsessive compulsive disorder) Current Visit: Yes
[2018-03-31] MEDS: GABAPENTIN 400 MG CAPSULE (FP) PO SCH ×2 (14:06→21:52)
[2018-03-31] MEDS: QUEtiapine FUMARATE 100 MG TABLET (FP) PO PRN (21:52)
[2018-03-31] MEDS: THIAMINE HCL 100 MG TABLET (FP) PO SCH (21:52)
[2018-03-31] MEDS: hydrOXYzine PAMOATE 50 MG CAPSULE (FP) PO PRN (21:52)
[2018-04-01] MEDS: CYCLOBENZAPRINE HCL 10 MG TABLET (FP) PO SCH ×3 (06:13→21:31)
[2018-04-01] MEDS: BUPRENORPHINE/NALOXONE 8 MG/2 MG FILM PACKET SL SCH ×2 (06:13→17:59)
[2018-04-01] MEDS: RIVAROXABAN 20 MG TABLET PO SCH (06:13)
[2018-04-01] MEDS: GABAPENTIN 400 MG CAPSULE (FP) PO SCH ×3 (06:13→21:31)
[2018-04-01] MEDS: NICOTINE POLACRILEX 4 MG GUM BUC PRN ×3 (06:14→16:45)
[2018-04-01 07:09] VITALS: PULSE 80
[2018-04-01] MEDS: PRENATAL VITAMINS W/ FOLIC ACID TABLET (FP) PO SCH (10:08)
[2018-04-01] MEDS: DOCUSATE SODIUM 100 MG CAPSULE (FP) PO SCH ×2 (10:08→21:31)
[2018-04-01] MEDS: LORATADINE 10 MG TABLET PO PRN (10:08)
[2018-04-01] MEDS: hydrOXYzine PAMOATE 50 MG CAPSULE (FP) PO PRN ×2 (13:48→21:31)
[2018-04-01] MEDS: THIAMINE HCL 100 MG TABLET (FP) PO SCH (21:31)
[2018-04-01] MEDS ORDERED: PT OWN MED DRAWER 7, Y5N ONE (21:44)
[2018-04-02] MEDS: GABAPENTIN 400 MG CAPSULE (FP) PO SCH (06:24)
[2018-04-02] MEDS: CYCLOBENZAPRINE HCL 10 MG TABLET (FP) PO SCH (06:24)
[2018-04-02] MEDS: BUPRENORPHINE/NALOXONE 8 MG/2 MG FILM PACKET SL SCH (06:25)
[2018-04-02] MEDS: RIVAROXABAN 20 MG TABLET PO SCH (06:25)
[2018-04-02] MEDS: NICOTINE POLACRILEX 4 MG GUM BUC PRN ×2 (06:38→09:11)
[2018-04-02 06:58] VITALS: BP 108/70; TEMP 98.3
[2018-04-02] MEDS: PRENATAL VITAMINS W/ FOLIC ACID TABLET (FP) PO SCH (09:10)
[2018-04-02] MEDS: DOCUSATE SODIUM 100 MG CAPSULE (FP) PO SCH (09:10)
[2018-04-02] MEDS: LORATADINE 10 MG TABLET PO PRN (09:11)
--- NOTE | 2018-04-02 10:29 | PN ---
[facility] Progress Note Note: PT COMPLETED REHAB AND DISCHARGED TODAY. PT HAS BEEN REFERRED TO [facility] ON [address], [place] FOR CD AFTERCARE TREATMENT. PT WILL ALSO FOLLOW UP WITH HER PREVIOUS PROVIDER, DR. WILFREDO HERMAN ON [address] [place], [place] FOR MAT. PT REPORTS SH HAS APPOINTMENT ON 04/30/18 WITH HER PRIMARY CARE PROVIDER DR. ZENDEJAS ON [address] [place], [place] FOR MEDICAL MANAGEMENT. PT'S PHARMACY, [facility] WAS CALLED THIS MORNING AND MR. NUNO, [facility] CONFIRMED PT HAS A NEW RX XERALTO 20 MG DAILY #30 POSTED BY HER DOCTOR TO BE PICKED UP. 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 ALERT O X 3. Vital Signs - 24 hr 04/02/18 04/02/18 04/02/18 00:30 03:30 06:58 Temperature 98.3 F Pulse Rate 80 Respiratory 17 18 16 Rate Blood Pressure 108/70 Laboratory Tests 03/19/18 03/19/18 03/19/18 12:40 12:40 12:40 WBC 5.8 RBC 3.83 Hgb 12.8 Hct 37.0 MCV 96.7 H MCH 33.4 MCHC 34.5 RDW 14.4 Plt Count 241 MPV 7.4 L Sodium 137 Potassium 4.4 Chloride 103 Carbon Dioxide 27 Anion Gap 7 L BUN 21 H Creatinine 1.0 Creat Clearance w eGFR > 60 Random Glucose 81 Calcium 8.7 Total Bilirubin 0.3 AST 28 ALT 42 Alkaline Phosphatase 65 Total Protein 7.6 Albumin 3.9 Urine Color Urine Appearance Urine pH Ur Specific [place] Urine Protein Urine Glucose (UA) Urine Ketones Urine Blood Urine Nitrite Urine Bilirubin Urine Urobilinogen Ur Leukocyte Esterase RPR Titer Nonreactive 03/20/18 03/26/18 09:20 07:00 WBC RBC Hgb Hct MCV MCH MCHC RDW Plt Count MPV Sodium Potassium Chloride Carbon Dioxide Anion Gap BUN Creatinine Creat Clearance w eGFR Random Glucose Calcium Total Bilirubin AST ALT Alkaline Phosphatase Total Protein Albumin Urine Color Ltyellow Straw Urine Appearance Clear Clear Urine pH 6.0 6.0 Ur Specific [place] 1.013 1.004 L Urine Protein Negative Negative Urine Glucose (UA) Negative Negative Urine Ketones Negative Negative Urine Blood Negative Negative Urine Nitrite Negative Negative Urine Bilirubin Negative Negative Urine Urobilinogen Negative Negative Ur Leukocyte Esterase Negative Negative RPR Titer NAD MEDICALLY STABLE PLAN:FOLLOW UP WITH CD AFTERCARE AT [facility] ON 04/13/18 AT 9:00 A.M FOLLOW UP WITH DR. WILFREDO HERMAN ON 04/07/18 AT 2 PM SCHEDULED FOLLOW UP WITH PCP, DR ZENDEJAS ON 04/30/18 SCHEDULED.
== END 2018-04-02 09:41 | disposition home or self-care (01) | DRG 772 ==
LOC: YASAS 10:37 → Y3E 12:23
PROVIDERS: ADMIT Neuromusculoskeletal Medicine & OMM; ATTEND Neuromusculoskeletal Medicine & OMM
PROC: HZ40ZZZ Group Counseling for Substance Abuse Treatment, Cognitive (ICD-10-PCS; principal; 2018-03-31)
DX: F11.20 Opioid dependence, uncomplicated (principal); F17.210 Nicotine dependence, cigarettes, uncomplicated; F19.24 Other psychoactive substance dependence with psychoactive substance-induced mood disorder; F42.9 Obsessive-compulsive disorder, unspecified; F31.81 Bipolar II disorder; B18.2 Chronic viral hepatitis C; M41.9 Scoliosis, unspecified; M54.5 Low back pain; G89.29 Other chronic pain; K59.00 Constipation, unspecified; Q66.6 Other congenital valgus deformities of feet; Z86.711 Personal history of pulmonary embolism
CPT/HCPCS: 36415; 80053; 81003; 85027; 86593; 93005; 93010